=== PATIENT | male | born 1965 | race Caucasian/White ===

== ENCOUNTER 2020-12-25 11:40 | Outpatient (REF) | payer OTHER, SELFPAY ==
[2020-12-25 13:18] LABS: Syphilis Screen Nonreactive (Nonreactive)
== END 2020-12-25 11:41 | disposition home or self-care (01) ==
LOC: HO.LAB 11:40
PROVIDERS: PCP Internal Medicine; Visit Provider Psychiatry & Neurology Neurology
DX: G93.40 Encephalopathy, unspecified (principal)
CPT/HCPCS: 36415; 86780